=== PATIENT | male | born 1975 | race Hispanic/Latino ===

== ENCOUNTER 2019-10-14 02:48 | Inpatient (IN) | payer SELFPAY ==
[~2019-10-14] VITALS: Ht 162.6 cm; Wt 83.5 kg
[2019-10-14] MEDS ORDERED: IPRATROPIUM/ALBUTEROL SULFATE 3 ML SOLUTION IH ONE ×2 (03:15→05:23)
[2019-10-14 03:26] LABS: APPEARANCE,URINE Clear (CLEAR); BILIRUBIN,URINE Negative (NEGATIVE); COLOR,URINE Yellow (YELLOW); GLUCOSE, URINE (UA) Negative (NEGATIVE); KETONES,URINE Negative (NEGATIVE); LEUKOCYTE ESTERASE ,URINE Negative (NEGATIVE); NITRATE,URINE Negative (NEGATIVE); OCCULT BLOOD,URINE Negative (NEGATIVE); PROTEIN,URINE POS 2+ mg/dL (NEGATIVE)
[2019-10-14 03:33] LABS: AMPHET/METH SCREEN,URINE NEGATIVE (NEGATIVE); BARBITURATE SCREEN, URINE NEGATIVE (NEGATIVE); BENZODIAZEPINES SCREEN,URINE NEGATIVE (NEGATIVE); CANNABINOID SCREEN,URINE POSITIVE (NEGATIVE); COCAINE SCREEN,URINE NEGATIVE (NEGATIVE); OPIATE SCREEN,URINE NEGATIVE (NEGATIVE); PHENCYCLIDINE SCREEN,URINE NEGATIVE (NEGATIVE)
[2019-10-14 03:34] LABS: CREATININE 0.8 mg/dL (0.5-1.5); POTASSIUM 3.5 mmol/L (3.5-5.1)
[2019-10-14 03:36] LABS: BASOPHILS % (AUTO) 0.1 % (0.0-5.0); EOSINOPHILS % (AUTO) 0.1 % (0.0-8.0); HEMATOCRIT 41.5 % (42-54); LYMPHOCYTES % (AUTO) 9.8 % (21.0-51.0); MEAN CORPUSCULAR HEMOGLOBIN 31.8 pg (27.0-33.0); MEAN CORPUSCULAR HGB CONC 35.2 g/dL (32.0-36.0); MEAN CORPUSCULAR VOLUME 90.4 fL (79-99); MONOCYTES % (AUTO) 14.4 % (3.0-13.0); NEUTROPHILS % (AUTO) 73.4 % (40.0-77.0); PLATELET COUNT (AUTO) 304 K/uL (130-400); RED BLOOD CELL COUNT(AUTO) 4.59 MIL/uL (4.50-6.20); RED CELL DISTRIBUTION WIDTH 11.8 % (11.0-15.5); WHITE BLOOD COUNT (AUTO) 7.4 K/uL (4.8-10.8)
[2019-10-14 03:48] LABS: ALBUMIN 2.9 g/dL (3.5-5.0); BILIRUBIN,TOTAL 0.9 mg/dL (0.2-1.0)
[2019-10-14] MEDS ORDERED: ASPIRIN 325 MG TABLET ONE (03:58)
[2019-10-14] MEDS ORDERED: NITROGLYCERIN 1GM/1 INCH PACKET TD ONE (03:58)
[2019-10-14] MEDS ORDERED: LEVOFLOXACIN 500 MG/D5W 100 ML 100 ML ONE (04:41)
[2019-10-14] MEDS ORDERED: CEFTRIAXONE SODIUM 1 GM ONE (04:41)
[2019-10-14] MEDS ORDERED: ONDANSETRON HCL 4 MG/2 ML VIAL IV PRN (05:00)
[2019-10-14] MEDS ORDERED: LACTULOSE 20 GM/30 ML UDCUP PO PRN (05:00)
[2019-10-14] MEDS: AZITHROMYCIN 500MG+NS 250ML 250 ML IV SCH (05:00)
[2019-10-14] MEDS ORDERED: CEFTRIAXONE SODIUM 1 GM IV SCH (05:00)
[2019-10-14] MEDS ORDERED: METHYLPREDNISOLONE SOD SUCC 125MG/2ML VIAL IV SCH (05:00)
[2019-10-14] MEDS ORDERED: ACETAMINOPHEN 325 MG TAB PO PRN (05:00)
[2019-10-14] MEDS ORDERED: METHYLPREDNISOLONE SOD SUCC 40MG/ML 1ML ONE (05:10)
[2019-10-14] MEDS ORDERED: AZITHROMYCIN 500MG+NS 250ML 250 ML IV ONE (05:10)
[2019-10-14] MEDS ORDERED: SODIUM CHLORIDE 0.9% 1000ML 1,000 ML IV SCH (05:15)
[2019-10-14] MEDS ORDERED: SODIUM CHLORIDE 3% FOR INHALATION 4 ML/AMP VIAL.NEB IH ONE ×2 (05:23→14:09)
[2019-10-14 07:30] VITALS: BP 156/93
--- NOTE | 2019-10-14 07:45 | NUR ---
PT COUGHING . NON PRODUCTIVE , DRY COUGH, PLACED ON DROPLET ISOLATION , EDUCATION . GIVEN,
--- NOTE | 2019-10-14 08:30 | NUR ---
ADMISSION FROM ER. PER SERVICES OF GENEVA VILLASEÑOR PT , C/O OF SOB WHEN MOVING ABOUT, REVIEW PLAN OF CARE, AND ADMISSION , DATA , PT IS ON ROOM AIR ,HOB UP AND CALL LIGHT IN REACH Addendum: 10/15/19 at 0719 by KWABENA SINGH RN RN CORRECTION ON ADMISSION ,OF 0730 ON 10/14/2019 INSTEAD OF 0830 ON 10/14/2019 [facility]
[2019-10-14] MEDS: ENOXAPARIN SODIUM 40 MG/0.4 ML SYRINGE SQ SCH (09:00)
[2019-10-14] MEDS: FAMOTIDINE 20MG TAB 20 MG TAB PO SCH ×2 (09:00→19:36)
[2019-10-14] MEDS ORDERED: ALBU0.63 IH (09:26)
[2019-10-14] MEDS ORDERED: AZIT250T9 PO (09:26)
[2019-10-14] MEDS ORDERED: IBUP-2077 PO (09:26)
[2019-10-14] MEDS ORDERED: [UNRECOGNIZED DRUG - CODE] PO (09:26)
--- NOTE | 2019-10-14 10:33 | NUR ---
DR. GRACE WAS CALL , FOR PULMONOGIST , CONSULTATION ,, , UPDATE PT ROOM , AND DIAGNOSIS ,
[2019-10-14 11:00] VITALS: BP 138/85
[2019-10-14] MEDS: IPRATROPIUM/ALBUTEROL SULFATE 3 ML SOLUTION IH SCH ×3 (11:25→23:35)
--- NOTE | 2019-10-14 14:23 | NUR ---
INITIAL SW met with patient. Patient lives with [email or web address], [phone]. No home services or DME. Patient is able to complete ADL's independently and drives at times. His niece helps with transportation when patient is unable to drive. 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 He has no PCP at this time. Pharmacy is [facility] in [place]. DCP is home. Patient has no insurance or benefits at this time. He was provided with community resources for post hospitalization follow up. Patient was also provided with Good RX card for prescriptions and educated on [facility] $4 medication program and [facility] $5 medication program. Patient is being assisted by [facility] for financial matters. Addendum: 10/14/19 at 1427 by JUAN PABLO GUERRERO SS Amended: Links added.
[2019-10-14] MEDS ORDERED: VANCOMYCIN PROTOCOL PER PHARMACY IV SCH (15:30)
--- NOTE | 2019-10-14 15:30 | NUR ---
DR. TOLEDO HERE WITH TO TRANSFER TO [address] [place] [address] , DUE TO THE CT SCAN RESULTS,DR. GRACE ALSO SPOKE WIT DR. TOLEDO REGARDING NEEDED HIGHER LEVEL OF CARE. .
[2019-10-14] MEDS ORDERED: CEFEPIME HCL 2 GM VIAL IVP SCH (16:00)
--- NOTE | 2019-10-14 16:18 | NUR ---
ORDER TO BE DROPLET PRECAUTIONS REVIEW WITH STAFF AND AT P[facility]U . TRANSFER CARE ,ALSO HOSPITAL EPIDEMILOGY . [facility] RODRIGUE[facility] INFECTION CONTROL WAS CALLED , WITH MESSAGE S TO VOICE MAIL REGARDING DRGrazyna ORDERS TO FOLLOW , LAB WAS ALSO CONTACT REGARDING DR. ORDER FOR TESTIN FOR THE NEENA DAMON. PER STAFF RESPOND , ORDERED NEEDED TO START WITH THE INFECTION CONTROL . NOTIFICATION .FOR AVAILABILTY .
--- NOTE | 2019-10-14 16:30 | NUR ---
REPORT GIVEN TO STAFF NURSE , MICHAEL PERERA. AND TRANSFER TO 2ND FLOOR UPDATE OF DROPLET PRECAUTION NEEDED . PER ORDERS
[2019-10-14 17:00] LABS: CRP QUANTITATIVE 57.2 mg/L (0.00-9.0)
[2019-10-14 17:11] VITALS: BP 149/92
[2019-10-14] MEDS: CEFEPIME HCL 2 GM VIAL IVP SCH (17:31)
[2019-10-14] MEDS: OSELTAMIVIR PHOSPHATE 75 MG CAP PO SCH (19:35)
[2019-10-14 20:00] VITALS: BP 150/92
--- NOTE | 2019-10-14 20:00 | NUR ---
PT FAMILY AND PT EDUCATED ON CONTACT PRECAUTIONS AND ISOLATION. RESPIRATORY ISOLATION. AIRBORNE. PT IS SOB. STABLE. STATES WORKS WITH [employer] AND IS EXPOSED TO MANY CHEMICALS FOR MANY YEARS NOW.
[2019-10-14] MEDS ORDERED: VANCOMYCIN 1.75 GM in SODIUM CHLORIDE 0.9% 250 ML IV SCH (20:08)
[2019-10-14] MEDS ORDERED: COMPOUND IV REFRIGERATED 1 EACH IVSOLN MISC PRN (20:15)
[2019-10-14] MEDS ORDERED: VANCOMYCIN 1GM+NS 250ML 250 ML IV ONE (22:55)
[2019-10-15] VITALS: BP 145/96
[2019-10-15] MEDS: CEFEPIME HCL 2 GM VIAL IVP SCH ×3 (01:00→14:52)
[2019-10-15] MEDS: AZITHROMYCIN 500MG+NS 250ML 250 ML IV SCH (03:07)
[2019-10-15 04:15] VITALS: BP 146/91
[2019-10-15] MEDS: IPRATROPIUM/ALBUTEROL SULFATE 3 ML SOLUTION IH SCH ×4 (05:02→23:41)
[2019-10-15 05:24] LABS: BASOPHILS % (AUTO) 0.3 % (0.0-5.0); HEMATOCRIT 39.2 % (42-54); LYMPHOCYTES % (AUTO) 9.7 % (21.0-51.0); MEAN CORPUSCULAR HEMOGLOBIN 31.4 pg (27.0-33.0); MEAN CORPUSCULAR HGB CONC 34.4 g/dL (32.0-36.0); MEAN CORPUSCULAR VOLUME 91.2 fL (79-99); NEUTROPHILS % (AUTO) 71.3 % (40.0-77.0); PLATELET COUNT (AUTO) 373 K/uL (130-400); RED CELL DISTRIBUTION WIDTH 11.9 % (11.0-15.5); WHITE BLOOD COUNT (AUTO) 8.7 K/uL (4.8-10.8)
[2019-10-15 06:25] LABS: CREATININE 0.9 mg/dL (0.5-1.5); POTASSIUM 3.4 mmol/L (3.5-5.1)
[2019-10-15] MEDS: FAMOTIDINE 20MG TAB 20 MG TAB PO SCH ×2 (07:10→20:56)
[2019-10-15] MEDS: ENOXAPARIN SODIUM 40 MG/0.4 ML SYRINGE SQ SCH (07:10)
[2019-10-15] MEDS: OSELTAMIVIR PHOSPHATE 75 MG CAP PO SCH ×2 (07:10→20:56)
--- NOTE | 2019-10-15 07:30 | NUR ---
ASSESSMENT PT IS AAOX3 DENIES CP DENIES SOB DENIES NV NO COMPLAINTS RESTING IN BED, BREATHING PATTERN IS EVEN AND UNLABORED AT THIS TIME WHILE AT REST. AM MEDS GIVEN, NO ISSUES VERBALIZED BY PATIENT. ISOLATION MAINTAINED, CALL LIGHT WITHIN REACH.
[2019-10-15 08:24] VITALS: BP 148/87
[2019-10-15 11:50] VITALS: BP 136/91
--- NOTE | 2019-10-15 13:29 | NUR ---
REPORT FROM LAB RESPIRATORY PCR H1N1 FLU A. NOTIFIED DR LORENZO. PATIENT REMAINS ON TAMIFLU. NO FURTHER ORDERS.
[2019-10-15] MEDS ORDERED: METHYLPREDNISOLONE SOD SUCC 40MG/ML 1ML IVP SCH (16:00)
[2019-10-15 16:01] VITALS: BP 153/101
--- NOTE | 2019-10-15 16:05 | NUR ---
ISOLATION CHANGED TO DROPLET BY INFECTION CONTROL STAFF
[2019-10-15] MEDS ORDERED: POTASSIUM CHLORIDE 20 MEQ ERTAB PO SCH (18:30)
[2019-10-15 20:37] VITALS: BP 141/88
[2019-10-15] MEDS ORDERED: VANCOMYCIN 1.25 GM in SODIUM CHLORIDE 0.9% 250 ML IV SCH (21:00)
--- NOTE | 2019-10-15 21:53 | NUR ---
TRANSFERRED FROM ROOM 201: Pt. transferred to room 331. Report given by Christelle Arias RN. Pt. transferred to room via wheelchair with personal belongings. Pt. alert and very responsive. Able to ambulate indep. Patient has a cough but no SOB/Wheezing. Presence of crackles sound during auscultation in all lobes noted. Has IV site to right f/a # 18gauge - patent and intact. Plan of care continued. Monitored and observed for any unusualities. Distress / discomfort not noted. Cared for and needs attended.
[2019-10-16] VITALS: BP 132/88
[2019-10-16] MEDS ORDERED: CEFEPIME HCL 1 GM VIAL ONE (00:16)
[2019-10-16 04:00] VITALS: BP 150/88
[2019-10-16] MEDS: AZITHROMYCIN 500MG+NS 250ML 250 ML IV SCH (05:03)
[2019-10-16 05:06] LABS: BASOPHILS % (AUTO) 0.5 % (0.0-5.0); HEMATOCRIT 40.4 % (42-54); LYMPHOCYTES % (AUTO) 11.8 % (21.0-51.0); MEAN CORPUSCULAR HEMOGLOBIN 31.5 pg (27.0-33.0); MEAN CORPUSCULAR HGB CONC 34.4 g/dL (32.0-36.0); MEAN CORPUSCULAR VOLUME 91.6 fL (79-99); MONOCYTES % (AUTO) 16.1 % (3.0-13.0); NEUTROPHILS % (AUTO) 66.7 % (40.0-77.0); PLATELET COUNT (AUTO) 474 K/uL (130-400); RED BLOOD CELL COUNT(AUTO) 4.41 MIL/uL (4.50-6.20); RED CELL DISTRIBUTION WIDTH 11.5 % (11.0-15.5); WHITE BLOOD COUNT (AUTO) 6.3 K/uL (4.8-10.8)
[2019-10-16 05:21] LABS: CARBON DIOXIDE 25 mmol/L (21-32); CHLORIDE 100 mmol/L (101-111); CREATININE 0.9 mg/dL (0.5-1.5); GLOMERULAR FILTR. RATE CALC 97 mL/min (>60); GLUCOSE,RANDOM 112 mg/dL (70-105); PHOSPHORUS 3.9 mg/dL (2.5-4.9); POTASSIUM 4.3 mmol/L (3.5-5.1); SODIUM SERUM 135 mmol/L (136-145); UREA NITROGEN, BLOOD 10 mg/dL (7-18)
[2019-10-16] MEDS: IPRATROPIUM/ALBUTEROL SULFATE 3 ML SOLUTION IH SCH ×4 (06:31→23:48)
[2019-10-16 08:21] VITALS: BP 134/85
[2019-10-16] MEDS: ENOXAPARIN SODIUM 40 MG/0.4 ML SYRINGE SQ SCH ×2 (08:46→09:15)
[2019-10-16] MEDS: OSELTAMIVIR PHOSPHATE 75 MG CAP PO SCH ×2 (09:00→21:09)
[2019-10-16] MEDS: FAMOTIDINE 20MG TAB 20 MG TAB PO SCH ×2 (09:00→21:09)
[2019-10-16] MEDS: CEFEPIME HCL 2 GM VIAL IVP SCH ×3 (09:00→16:53)
[2019-10-16] MEDS ORDERED: VANCOMYCIN 1.75 GM in SODIUM CHLORIDE 0.9% 250 ML IV SCH (10:00)
[2019-10-16 11:27] VITALS: BP 126/83
[2019-10-16 16:26] VITALS: BP 133/86
--- NOTE | 2019-10-16 17:08 | NUR ---
THC Positive SW met with patient to discuss lab results that are positive for THC. Patient admitted that he smokes marijuana for recreation. Patient admits to starting to smoke marijuana when he was 15 years old. He stated that the last time he smoked was 3 weeks ago. Patient stated that he plans to stop smoking due to help issues it may cause. SW provided patient with community resources for substance abuse counseling. Patient was receptive and stated that he may use resources in the future. No other concerns voiced by patient.
[2019-10-16 20:00] VITALS: BP 132/85
[2019-10-16] MEDS: VANCOMYCIN 1.25 GM in SODIUM CHLORIDE 0.9% 250 ML IV SCH (21:09)
[2019-10-17] VITALS: BP 125/80
[2019-10-17] MEDS: CEFEPIME HCL 2 GM VIAL IVP SCH ×3 (00:15→17:18)
[2019-10-17 04:00] VITALS: BP 122/72
[2019-10-17] MEDS: AZITHROMYCIN 500MG+NS 250ML 250 ML IV SCH (04:34)
[2019-10-17 06:10] LABS: BASOPHILS % (AUTO) 0.5 % (0.0-5.0); EOSINOPHILS % (AUTO) 0.5 % (0.0-8.0); HEMATOCRIT 40.2 % (42-54); LYMPHOCYTES % (AUTO) 11.6 % (21.0-51.0); MEAN CORPUSCULAR HEMOGLOBIN 31.7 pg (27.0-33.0); MEAN CORPUSCULAR HGB CONC 34.8 g/dL (32.0-36.0); MONOCYTES % (AUTO) 14.6 % (3.0-13.0); NEUTROPHILS % (AUTO) 68.3 % (40.0-77.0); PLATELET COUNT (AUTO) 528 K/uL (130-400); RED BLOOD CELL COUNT(AUTO) 4.42 MIL/uL (4.50-6.20); RED CELL DISTRIBUTION WIDTH 11.6 % (11.0-15.5); WHITE BLOOD COUNT (AUTO) 9.4 K/uL (4.8-10.8)
[2019-10-17 06:25] LABS: CREATININE 0.8 mg/dL (0.5-1.5); POTASSIUM 3.8 mmol/L (3.5-5.1)
[2019-10-17] MEDS: IPRATROPIUM/ALBUTEROL SULFATE 3 ML SOLUTION IH SCH ×4 (06:40→23:39)
[2019-10-17 08:35] VITALS: BP 128/71
[2019-10-17] MEDS: OSELTAMIVIR PHOSPHATE 75 MG CAP PO SCH ×2 (08:59→21:38)
[2019-10-17] MEDS: ENOXAPARIN SODIUM 40 MG/0.4 ML SYRINGE SQ SCH ×2 (09:00)
[2019-10-17] MEDS: FAMOTIDINE 20MG TAB 20 MG TAB PO SCH (09:00)
[2019-10-17] MEDS: VANCOMYCIN 1.25 GM in SODIUM CHLORIDE 0.9% 250 ML IV SCH ×2 (09:01→23:05)
[2019-10-17 12:01] VITALS: BP 121/75
[2019-10-17 16:11] VITALS: BP 133/78
[2019-10-17 20:00] VITALS: BP 120/69
[2019-10-17] MEDS: RANITIDINE HCL 15 MG/1 ML PO SCH (21:38)
[2019-10-18] VITALS: BP 114/69
[2019-10-18] MEDS: CEFEPIME HCL 2 GM VIAL IVP SCH ×2 (00:20→09:34)
[2019-10-18 04:00] VITALS: BP 116/72
[2019-10-18] MEDS: AZITHROMYCIN 500MG+NS 250ML 250 ML IV SCH (05:44)
[2019-10-18] MEDS: IPRATROPIUM/ALBUTEROL SULFATE 3 ML SOLUTION IH SCH ×2 (06:55→11:09)
[2019-10-18] MEDS: ENOXAPARIN SODIUM 40 MG/0.4 ML SYRINGE SQ SCH ×2 (07:48→09:35)
[2019-10-18 08:00] VITALS: BP 120/87
[2019-10-18] MEDS: OSELTAMIVIR PHOSPHATE 75 MG CAP PO SCH (09:34)
[2019-10-18] MEDS: RANITIDINE HCL 15 MG/1 ML PO SCH (09:34)
[2019-10-18] MEDS: VANCOMYCIN 1.25 GM in SODIUM CHLORIDE 0.9% 250 ML IV SCH (09:35)
[2019-10-18 12:21] VITALS: BP 136/81
[2019-10-18] MEDS ORDERED: OSEL75 PO (12:42)
[2019-10-18] MEDS ORDERED: LEVO500T2 PO (12:42)
== END 2019-10-18 15:00 | disposition home or self-care (01) | DRG 871 ==
LOC: EDH 02:48 → EDHIP 02:49 → 4CH 08:17 → 4DH 08:45 → 2DH 16:09 → 2AH 18:06 → 3AH 10-15 21:47
PROVIDERS: ADMIT Internal Medicine; ATTEND Internal Medicine
DX: A41.9 Sepsis, unspecified organism (principal); J96.01 Acute respiratory failure with hypoxia; J12.9 Viral pneumonia, unspecified; J10.00 Influenza due to other identified influenza virus with unspecified type of pneumonia; B17.9 Acute viral hepatitis, unspecified; M62.82 Rhabdomyolysis; E44.0 Moderate protein-calorie malnutrition; F12.10 Cannabis abuse, uncomplicated; D72.810 Lymphocytopenia; E87.6 Hypokalemia; B34.8 Other viral infections of unspecified site; Z68.31 Body mass index [BMI] 31.0-31.9, adult
CPT/HCPCS: 36415; 71045; 71250; 76705; 80048; 80053; 80202; 80305; 81003; 82550; 83605; 83615; 83735; 83880; 84100; 84145; 84484; 85025; 86140; 86701; 87040; 87071; 87205; 87390; 87449; 87486; 87581; 87633; 87798; 87804; 93005; 94640; 94664; 99291; G0378; J0456; J0692; J0696; J1650; J1956; J2920; J3370; J7030